=== PATIENT | female | born 1985 | race Two or more races ===

== ENCOUNTER → 2017-06-11 | Outpatient (CLI) | payer OTHER | LOC: FIMAGING 14:45 | PROVIDERS: ATTEND Internal Medicine Infectious Disease | DX: R06.2 Wheezing (principal) ==

== ENCOUNTER → 2017-06-15 | Outpatient (CLI) | payer OTHER | LOC: FIMAGING 11:42 | PROVIDERS: ATTEND Nurse Practitioner | DX: J47.9 Bronchiectasis, uncomplicated (principal); R91.1 Solitary pulmonary nodule ==

== ENCOUNTER 2017-08-05 12:47 | Day surgery (SDC) | payer OTHER ==
[~2017-08-05 12:47] MED LIST: EPINEPHrine 1 MG/10 ML SYR IVP ONE; LIDOCAINE 1% 300 MG/30 ML SDV ONE; LIDOCAINE 2% JELLY 5 ML TUBE ONE
[2017-08-05] MEDS ORDERED: NS 500 ML IV ONE (12:52)
[2017-08-05] MEDS ORDERED: LIDOCAINE 1% 2 ML INJ ID PRN (12:52)
[2017-08-05 13:22] VITALS: PULSE 85
[2017-08-05] MEDS ORDERED: MIDAZOLAM 2 MG/2 ML VIAL ONE ×2 (13:34)
[2017-08-05] MEDS ORDERED: fentaNYL 100 MCG/2 ML INJ ONE ×2 (13:35)
--- NOTE | 2017-08-05 14:14 | PDPROPOC ---
Sedation Plan of Care Sedation Plan of Care: vital signs stable, mental status noted, patient educated of risks, benefits, alternatives, patient can tolerate sedation ASA Classification: ASA 2 Mallampati Score: Class 2 Mallampati Reference Image:
--- NOTE | 2017-08-05 14:14 | PDHPUP ---
History & Physical Update H&P update statement: This history and physical update is based on an assessment of the patient which was completed after admission or registration (within 24 hours), but prior to the surgery/procedure. H&P update: H&P reviewed & patient examined, no change in patient's condition since H&P completed
[2017-08-05 14:45] VITALS: BP 122/57; O2SAT 100
--- NOTE | 2017-08-05 14:46 | GCON ---
[f rep st] CONSULTATION PULMONARY CONSULTATION DATE OF CONSULTATION: 08/05/2017 HISTORY OF PRESENT ILLNESS: This patient is a 31-year-old female with a history of bronchiectasis, w ho has been followed by Infectious Disease as well as [facility] Department for concerns of tube rculosis. She has had multiple sputum cultures that have been negative, though cultures are still pe nding at this time. I have been asked to perform a bronchoscopy. She has ongoing fever of unknown o rigin, which prompted the workup in the first place, including the CT scan showing bronchiectasis. S he does not smoke and does not use any recreational drugs. Does not spend any time around hot tubs a nd has had known occupational exposures. She did immigrate to the [place] from [place] [facility] years ago. Had a PPD that has been negative, as well as QuantiFERON that has been negative. REVIEW OF SYSTEMS: Otherwise negative. PAST MEDICAL HISTORY: 1. Bronchiectasis. 2. Hypothyroid. 3. Infertility. 4. Anemia. PAST SURGICAL HISTORY: None. SOCIAL HISTORY: She is a nonsmoker. No alcohol or recreational drug use. FAMILY HISTORY: Noncontributory. MEDICATIONS: None at this time. PHYSICAL EXAMINATION: GENERAL APPEARANCE: She is a very pleasant young woman in no apparent distres s. Able to speak in full sentences without using accessory muscles for breathing. HEENT: Pupils ar e equally round and react to light. Nonicteric and noninjected. Mucous membranes are moist, without erythema or exudate. Dentition is excellent. NECK: Supple, without adenopathy or jugular vein dis tention. LUNGS: Breath sounds reveal some crackles anteriorly, but otherwise mostly clear to auscul tation bilaterally. HEART: Regular rate and rhythm without murmurs, rubs or gallops. ABDOMEN: Sof t, nontender, nondistended; without hepatosplenomegaly. EXTREMITIES: No clubbing, cyanosis or edema . NEUROLOGIC: Nonfocal, including cranial nerves and deep tendon reflexes. SKIN: Warm and dry, wi thout evidence of rash. LABORATORY DATA: CT scan as described above, and a negative connective tissue disease workup. ASSESSMENT AND PLAN: Bronchiectasis of uncertain etiology. I think tuberculosis highly unlikely, bu t mycobacterium avium complex is certainly a possibility in this situation. I agree with bronchoscop y, and we will proceed with BAL this afternoon. This case was discussed with the patient in great de dionna, and she agreed to proceed. /[id number]/MODL
--- NOTE | 2017-08-05 15:16 | GPN ---
[f rep st] PROCEDURE NOTE DATE OF PROCEDURE: 08/05/2017 PROCEDURE: Bronchoalveolar lavage. CONSENT: Informed consent was obtained from the patient prior to the administration of anesthesia. The risks and benefits of the procedure and conscious sedation were explained in detail, and patient agreed to proceed. Conscious sedation was achieved using a total of 100 mcg of IV fentanyl and 3 mg of IV Versed. Patie nt tolerated these well without complications. After the application of topical lidocaine in the pos terior pharynx, the bronchoscope was passed past the epiglottis, revealing normal vocal cords with no rmal movement. The scope was then entered into the trachea, which also appeared to be normal; there were no mucosal abnormalities. The scope was advanced down to the right middle lobe where the vast m ajority of abnormalities were seen on CT scan. In this region, a bronchoalveolar lavage was performe d using 3 aliquots of 40 cc of normal saline, totaling 120 cc. A total of only 20 cc was returned, t hat was somewhat cloudy with tiny mucous plugs. Attention was then taken to the right upper lobe, wh ere additional areas of tree-in-bud abnormalities were found on the CT scan. In this region, a singl e BAL was performed using an aliquot of 40 cc normal saline, with an about 30 cc return of yellowish fluid without obvious mucous plugs. There was no bleeding, there were no endobronchial lesions, and there were no mucosal abnormalities. The remaining right upper lobe, left lower lobe, and left upper lobe segments were also explored, and there were no significant mucous plugs, secretions, endobronch ial lesions, or mucosal abnormalities observed. Overall, the patient tolerated procedure well, and t here were no obvious complications. /[id number]/MODL
[2017-08-05 15:39] LABS: PNEUMOCYSTIS REQUEST RECEIVED
[2017-08-05 15:48] LABS: PNEUMOCYSTIS REQUEST RECEIVED
[2017-08-05 16:07] VITALS: RESP 15
[2017-08-05 16:21] VITALS: TEMP 97.9
[2017-08-05 21:09] LABS: CYTOLOGY REQUISITION RECEIVED
[2017-08-05 21:18] LABS: CYTOLOGY REQUISITION RECEIVED
== END 2017-08-05 16:30 | disposition home or self-care (01) ==
LOC: FSGY 12:47 → EEVIPCON 12:47 → FSGY 16:30
PROVIDERS: ATTEND Internal Medicine Critical Care Medicine
PROC: 0B958ZX Drainage of Right Middle Lobe Bronchus, Via Natural or Artificial Opening Endoscopic, Diagnostic (ICD-10-PCS; principal; 2017-08-05 14:00)
PROC: 0B948ZX Drainage of Right Upper Lobe Bronchus, Via Natural or Artificial Opening Endoscopic, Diagnostic (ICD-10-PCS; principal; 2017-08-05 14:00)
DX: J47.9 Bronchiectasis, uncomplicated (principal); E03.9 Hypothyroidism, unspecified; D64.9 Anemia, unspecified; N97.9 Female infertility, unspecified
CPT/HCPCS: J2250; J3010

== ENCOUNTER → 2018-02-10 | Outpatient (CLI) | payer OTHER | LOC: FIMAGING 15:31 | PROVIDERS: ATTEND Internal Medicine Infectious Disease | DX: J47.9 Bronchiectasis, uncomplicated (principal); J18.9 Pneumonia, unspecified organism ==

== ENCOUNTER → 2018-03-10 | Outpatient (CLI) | payer OTHER | PROVIDERS: ATTEND Internal Medicine Infectious Disease | DX: R13.10 Dysphagia, unspecified (principal); J47.9 Bronchiectasis, uncomplicated; A43.0 Pulmonary nocardiosis | CPT/HCPCS: 92611-GN ==

== ENCOUNTER 2018-03-14 20:06 | Emergency (ER) | payer OTHER ==
[2018-03-14] MEDS ORDERED: NS 500 ML IV ONE (20:20)
--- NOTE | 2018-03-14 20:48 | CPEKG ---
Heart Rate: 72 RR Interval: 833 P-R Interval: 136 QRSD Interval: 84 QT Interval: 372 QTC Interval: 408 P [place]: 82 QRS [place]: 67 T Wave [place]: 39 EKG Severity - OTHERWISE NORMAL ECG - EKG Impression: SINUS RHYTHM EKG Impression: LATERAL Q WAVES, PROBABLY NORMAL VARIATION Electronically Signed By: Aj Mcdaniel 14-Mar-2018 22:11:31
[2018-03-14] MEDS ORDERED: MAG HYDROX/AL HYDROX/SIMETH 30 ML UDCUP PO ONE (21:26)
[2018-03-14] MEDS ORDERED: LIDOCAINE 2% VISCOUS 15 ML UDCUP PO ONE (21:26)
[2018-03-14] MEDS ORDERED: HYOSCYAMINE SULFATE 0.125 MG TAB PO ONE (21:26)
--- NOTE | 2018-03-14 21:33 | EDPHY ---
H & P Time Seen by Provider: 03/14/18 20:20 HPI/ROS: HPI Chest pain. 32-year-old female by private vehicle with her . 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 She has also been recently started on Augmentin. She presents the emergency department complaining of a sharp burning-like pain mid sternum which comes on in waves, comes up from her epigastric area and is at times worse with taking a deep breath. No fever. No cough. She reports some shortness of breath with the pain. She reports that her stomach started becoming irritated when she started taking Augmentin in addition to her fluoroquinolone. She recently stopped taking Augmentin. ROS: Constitutional: No fever, no chills. No weakness. Eyes: No discharge. No changes in vision. ENT: No sore throat. No nasal congestion or rhinorrhea. Respiratory: No cough. As above. Cardiac: As above, no palpitations. Gastrointestinal: No abdominal pain, no vomiting, no diarrhea. Genitourinary: No hematuria. No dysuria or increased frequency with urination. Musculoskeletal: No back pain. No neck pain. No myalgias or arthralgias. Skin: No rashes. Neurological: No headache. No focal weakness or altered sensation. Past medical history: Nocardia infection of the lungs. Currently on long-term Moxifloxacin and Augmentin. She is managed by Dr. Gayathri Bess of infectious disease. Hypothyroidism. Social history: Nonsmoker. Here with her . No alcohol. Physical Exam: General Appearance: Alert, no distress. This patient is responding to questions appropriately and in full sentences. This patient appears well- hydrated and well-nourished. Eyes: Pupils equal and round no pallor or injection. No lid edema, erythema or injection. Respiratory: There are no retractions, lungs are clear to auscultation with good air movement bilaterally. Chest wall is stable and nontender on palpation. Cardiovascular: Regular rate and rhythm. No murmur. Gastrointestinal: Abdomen is soft and nontender, no masses, bowel sounds normal. No focal tenderness at McBurney's point. No Leonardo sign. Neurological: Motor sensory function is grossly intact. Cranial nerves are normal. Gait is normal. Skin: Warm and dry, no rashes. Musculoskeletal: Neck is supple and nontender. Extremities are symmetrical. All joints range without pain or impingement. Psychiatric: No agitation. No depression. Database: EKG: EKG time is 8:46 p.m.; EKG shows a narrow complex normal sinus rhythm with a ventricular rate of 72. Q-waves noted in the lateral leads. The UT, QRS, QT intervals are within normal limits. There are no ST-T wave changes indicative of ischemic or injury pattern. No evidence of right heart strain. Interpreted by me. Imaging: Chest x-ray PA and lateral; the cardiac mediastinal silhouette is unremarkable. No evidence of infiltrate or pneumothorax. No evidence of pneumomediastinum. No acute cardiopulmonary disease process noted. Interpreted by me. Procedures: Emergency department course: Vital signs reviewed and are normal. The patient does not appear to be in any distress. EKG obtained and reviewed by myself. Chest x-ray to be obtained. Patient will be given a GI cocktail. 9:50 p.m., patient re-evaluated. Resting comfortably at this time. She states that she feels much better and has complete resolution of her pain. At this time she feels comfortable going home and is requesting discharge with her . I discussed her elevated D-dimer. I explained to her that given her response to the GI cocktail that I felt pulmonary embolism was very unlikely a cause of her pain. I did discuss obtaining a CT scan. She has recently had a CT of her chest. She declines this test at this time. The patient competently engages in shared decision making. They demonstrate capacitance to make decisions. 10:00 p.m., spoke with Dr. Gayathri Bess of the Infectious Disease service. She is very familiar with this patient. She explained to me that the patient started having some stomach irritation after she was started on Augmentin. The patient also had a recent upper GI study ordered by Dr. Bess which showed some superficial ulcerations of the stomach. I discussed the case in detail with Dr. Bess. She agrees with me that pulmonary embolism is unlikely a source of the patient's discomfort. 10:10 p.m., patient again re-evaluated. She is asymptomatic at this time. Her vital signs have been normal throughout her emergency department course. She feels comfortable going home with her and I feel she is safe for discharge. She will call Dr. Bess tomorrow to set up outpatient follow-up within the next couple of days. Return to emergency department precautions were reviewed with her thoroughly. All of her questions were answered. The patient was discharged in good condition with her . Differential Diagnosis: The differential diagnosis on this patient includes but is not limited to GERD, esophageal spasm. Acute pneumonia, pneumomediastinum, pneumothorax, pulmonary embolism, acute coronary syndrome, myocarditis, pericarditis unlikely. This represents a partial list of diagnoses considered. These considerations are based on history, physical exam, past history, reassessment and diagnostic testing. Smoking Status: Never smoked Constitutional: Initial Vital Signs Temperature (C) 36.8 C 03/14/18 20:10 Heart Rate 87 03/14/18 20:10 Respiratory Rate 18 03/14/18 20:10 Blood Pressure 105/74 03/14/18 20:10 O2 Sat (%) 97 03/14/18 20:10 O2 Delivery Mode Room Air Allergies/Adverse Reactions: No Known Allergies Allergy (Unverified 03/14/18 20:13) Home Medications: Medication Instructions Recorded Acetaminophen Extra Strength 500 PO PRN PRN 08/05/17 Vitamins DAILY 08/05/17 Pycnogenol 100 PO DAILY 08/05/17 Synthroid 75 mcg (*) PO DAILY 08/05/17 Moxifloxacin [Avelox 400 mg (*)] 400 mg PO DAILY 03/14/18 Medical Decision Making - Diagnostics Imaging Results: Imaging Impressions Chest X-Ray 03/14/18 20:21 Impression: 1. Bronchiectasis. 2. Increased interstitial markings, as detailed above, without focal pulmonary consolidation. This may correlate to previously demonstrated tree-in-bud formation raising the possibility of mycobacterium infection. 3. See above report for additional findings. Results called and discussed with Aj Mcdaniel M.D., on March 14, 2018 at 2137. - Data Points Laboratory Results: Laboratory Results 03/14/18 20:20 03/14/18 03/14/18 03/14/18 20:21 20:20 20:20 D-Dimer 1.12 ug/mLFEU H ug/mLFEU (0.00-0.50) Sodium 141 mEq/L mEq/L (135-145) Potassium 3.9 mEq/L mEq/L (3.5-5.2) Chloride 102 mEq/L mEq/L (97-110) Carbon Dioxide 25 mEq/l mEq/l (22-31) Anion Gap 14 mEq/L mEq/L (8-16) BUN 8 mg/dL mg/dL (7-23) Creatinine 0.7 mg/dL mg/dL (0.6-1.0) Estimated GFR > 60 Glucose 87 mg/dL mg/dL (70-100) Calcium 10.0 mg/dL mg/dL (8.5-10.4) Beta HCG, Qual NEGATIVE Medications Given: Discontinued Medications Al Hydroxide/Mg Hydroxide (Maalox Susp) 30 ml PO ONCE ONE Stop: 03/14/18 21:27 Last Admin: 03/14/18 21:31 Dose: 30 ml Hyoscyamine Sulfate (Levsin, Hyomax-Sl) 0.25 mg PO ONCE ONE Stop: 03/14/18 21:27 Last Admin: 03/14/18 21:30 Dose: 0.25 mg Sodium Chloride (Ns) 500 mls @ 1,000 mls/hr IV EDNOW ONE PRN Reason: Protocol Stop: 03/14/18 20:49 Last Admin: 03/14/18 21:00 Dose: 500 mls Lidocaine (Lidocaine 2% Viscous) 15 ml PO ONCE ONE Stop: 03/14/18 21:27 Last Admin: 03/14/18 21:31 Dose: 15 ml Departure - Departure Disposition: Home, Routine, Self-Care Clinical Impression: Chest discomfort, Gastroesophageal reflux Condition: Good Instructions: Chest Pain (ED), Gastroesophageal Reflux Disease (ED) Additional Instructions: Read and follow provided instructions. Follow-up with Dr. Gayathri Bess in the next 1-2 days for re-evaluation as discussed. Continue taking your antibiotics as prescribed. Avoid spicy, fatty, greasy foods. Return to the emergency department for worsening pain, shortness of breath, fever or other serious concerns. Referrals: Gayathri Bess MD [Medical Doctor] - As per Instructions
[2018-03-14 22:22] VITALS: BP 104/72
== END 2018-03-14 22:20 | disposition home or self-care (01) ==
DX: K21.9 Gastro-esophageal reflux disease without esophagitis (principal); E86.9 Volume depletion, unspecified

== ENCOUNTER → 2018-07-29 | Outpatient (CLI) | payer OTHER | LOC: FIMAGING 13:43 | PROVIDERS: ATTEND Internal Medicine Infectious Disease | DX: J47.9 Bronchiectasis, uncomplicated (principal); K76.9 Liver disease, unspecified; N28.89 Other specified disorders of kidney and ureter ==